=== PATIENT | male | born 1950 | race Caucasian/White ===

== ENCOUNTER 2017-06-08 05:48 | Day surgery (SDC) | payer BC ==
[2017-06-05 09:44] VITALS: BMI 37.2
--- NOTE | 2017-06-07 16:28 | HP ---
HISTORY AND PHYSICAL Aramis Warren is a 66-year-old patient seen with progressive right shoulder pain. After treatment options were discussed with him, he elected to proceed with right shoulder arthroscopy. Consent was obtained, clearance was provided medically by Dr. Kaufman. PAST MEDICAL HISTORY: Noncontributory. PAST SURGICAL HISTORY: Left shoulder surgery. MEDICATIONS: Tramadol, Aleve. ALLERGIES: None reported. SOCIAL HISTORY: Patient denies tobacco use. PHYSICAL EXAMINATION: Evaluation of the right shoulder flexion is 60 degrees, abduction is 30 degrees. External rotation is 30 degrees with some pain and weakness. Impingement sign positive at 50 degrees. Drop-arm sign is positive. Distal neurovascular exam is intact. RADIOGRAPHS: Right shoulder revealed a type 2 anterior acromion, evidence for acromioclavicular joint osteoarthritis. An MRI of the right shoulder was not obtained. IMPRESSION: 1. Right shoulder impingement with rotator cuff tear. 2. Right shoulder acromioclavicular joint osteoarthritis. PLAN: Right shoulder arthroscopy with subacromial decompression probable arthroscopic rotator cuff repair, possible Naheed procedure, biceps tenotomy and debridement. Surgery is 06/08/2017. MMODL / IJN: [id number] /
[~2017-06-08 05:48] MED LIST: ceFAZolin IN SWFI 2 GM/20 ML SYRINGE IVP ONE
[2017-06-08] MEDS ORDERED: LACTATED RINGERS 1,000 ML IV ONE ×2 (06:36→08:06)
[2017-06-08] MEDS ORDERED: LIDOCAINE 1% 20 ML VIAL (10MG/ML) FOR IV START INTRADERMA ONE (06:38)
[2017-06-08] MEDS ORDERED: ONDANSETRON 4 MG/2 ML VIAL IVP ONE (06:39)
[2017-06-08] MEDS ORDERED: DEXAMETHASONE SOD PHOS (MDV) 100 MG/10 ML VIAL IV ONE (06:39)
[2017-06-08 06:44] LABS: Glucose,Whole Blood 125 mg/dL (75-99)
[2017-06-08] MEDS ORDERED: MIDAZOLAM 2 MG/2 ML VIAL IV ONE (06:50)
[2017-06-08] MEDS ORDERED: LIDOCAINE 2%-EPI 1:100,000 20 ML VIAL ONE (07:28)
[2017-06-08] MEDS ORDERED: PHENYLEPHRINE-0.9% NACL SYG 1 MG/10 ML SYRINGE ONE (07:28)
[2017-06-08] MEDS ORDERED: SUCCINYLCHOLINE CHLORIDE 100 MG/5 ML SYR IV ONE (07:28)
[2017-06-08] MEDS ORDERED: fentaNYL (PF) 50 MCG/ML 2 ML AMP ONE (07:28)
[2017-06-08] MEDS ORDERED: MIDAZOLAM 2 MG/2 ML VIAL ONE (07:28)
[2017-06-08] MEDS ORDERED: HYDROmorphone (PF) 1 MG/ML ONE (07:28)
[2017-06-08] MEDS ORDERED: ROPIVACAINE 5 MG/ML 30 ML VIAL ONE (07:28)
[2017-06-08] MEDS ORDERED: PROPOFOL 10 MG/ML 20 ML VIAL IV ONE (07:28)
[2017-06-08] MEDS ORDERED: LIDOCAINE 1% INJ 10MG/ML (20 ML MDV) ONE (07:28)
--- NOTE | 2017-06-08 09:27 | P.ONQ ---
Anesthesiology Proc Note - PNB - Peripheral Nerve Block Performed Right Interscalene Single Procedure Start Time: 07:15 Procedure Stop Time: :25 Indication: Requested by physician Specifically requested for management of pain by DrJose Cruz: Jair Peoples Sedation Type: Sedate with meaningful contact maintained Preparation: Sterile Prep Position: Supine Needle Types: Facet Needle Size: 100mm (4") Needle Gauge: 21 Technique: Ultrasound Injectate: 0.5% Ropivacaine (see comment for volume) Blood Aspirated: No Pain Paresthesia on Injection Noted: No Resistance on Injection: Normal Events: Uneventful and Well Tolerated
--- NOTE | 2017-06-08 10:20 | P.OP ---
Date of Procedure: 06/08/17 Preoperative Diagnosis: Right shoulder impingement Postoperative Diagnosis: 1. Right shoulder rotator cuff tear 2. Right shoulder impingement 3. Right shoulder acromioclavicular joint osteoarthritis 4. Right shoulder superficial labral tear 5. Right shoulder glenoid chondromalacia Procedure(s) Performed: 1. Right shoulder arthroscopic rotator cuff repair 2. Right shoulder arthroscopic decompression 3. Right shoulder arthroscopic Naheed procedure 4. Right shoulder arthroscopic debridement labral tear 5. Right shoulder chondroplasty glenoid Implants: 6-4.5 peek anchors Anesthesia: GETA, regional (interscalene block) Surgeon: Jair Peoples Head Stock Transfer Clerk #1: Richard Lopez Estimated Blood Loss (ml): 20 Pathology: none sent Condition: stable Disposition: PACU Indications for Procedure: 66yr old patient seen with progressive right shoulder pain. After treatment options were discussed, he elected to proceed with arthroscopy Operative Findings: see description of procedure Description of Procedure: Patient underwent a shoulder block by department of anesthesia. The patient was then taken to the operative suite. The patient underwent a general anesthetic by the department of anesthesia. The patient was placed into a lateral position and secured. There was appropriate padding of the bony prominence. right shoulder was then prepped and draped in normal sterile orthopedic fashion. We placed the extremity in 10 pounds of longitudinal traction. A posterior incision was now made for a posterior working portal site. The trocar and cannula were inserted into the glenohumeral joint. Arthroscopy was initiated. Spinal needle was now inserted anteriorly, to ascertain the anterior working portal site. An incision was now made in that area, a trocar was inserted followed by a probe.there superficial tearing of the anterior superior labrum present. Biceps tendon was absent. Grade 1 chondral malacia changes of the humeral head and grade 1-2 chondral malacia changes of glenoid fossa. Some osteochondral tears were present near the glenoid fossa. There was a massive rotator cuff tear clearly visualized from glenohumeral side. I debrided the superficial labral tears down to stable tissue. I performed a chondroplasty the glenoid down to stable tissue. Instruments now removed from glenohumeral joint. Utilizing the posterior working portal site, the trocar and cannula were inserted into the subacromial space. Arthroscopy initiated. I made an incision 2 fingerbreadths lateral to the acromion. I introduced my trocar followed by my ArthroCare ablator. I now began ablating thick subacromial bursal tissue, which exposed the undersurface of the anterior acromion. This was diminished subacromial space. There was a very prominent anterior acromion. A motorized bur was introduced and a subacromial decompression was performed. I also excised some osteophytes off the inferior aspect of the distal clavicle. The AC joint was visualized and noted to be fairly arthritic. Our motorized bur was introduced in the anterior portal site and a Naheed procedure was performed without difficulty, decompressing the AC joint nicely. I turned my attention to the rotator cuff. There was a massive retracted rotator cuff tear present. It measured approximately 5 cm. I proceeded with a significant release and now was able to bring the tendon over the footprint. I abraded the footprint with a motorized bur. I repaired the posterior intrasubstance portion of the tear with 2 [id number] sutures. I made 2 director writing portal sites off the lateral acromion. I introduced 3 medial row anchors each with 2 sutures. I now passed all 8 limbs of suture through good bites of rotator cuff tendon. We now crisscrossed our sutures and introduced 3 lateral anchors which compressed the tendon along her abraded footprint very nicely. Residual suture limbs were clipped. We had a good stable repair this massive retracted tear. I injected 1 mL UCT intra-articular.Instruments now removed from the portal sites. All portal sites were approximated with nylon suture. Sterile dressings were applied followed by a shoulder immobilizer. [facility] assisted with the procedure. The patient was awakened, transferred to a bed, and taken to recovery in stable condition.
[2017-06-08 10:30] VITALS: TEMP 97.2
[2017-06-08] MEDS: HYDROmorphone 4 MG/ML 1 ML SYRINGE IVP ONE ×2 (10:38→10:44)
[2017-06-08 10:45] LABS: Glucose,Whole Blood 132 mg/dL (75-99)
[2017-06-08] MEDS ORDERED: METOPROLOL TARTRATE 5 MG/5 ML VIAL IVP ONE (10:51)
[2017-06-08 13:14] VITALS: BP 124/82; PULSE 76
[2017-06-08 14:28] VITALS: RESP 14
== END 2017-06-08 15:20 | disposition home or self-care (01) ==
LOC: OR 05:48
PROVIDERS: ATTEND Orthopaedic Surgery
DX: M75.101 Unspecified rotator cuff tear or rupture of right shoulder, not specified as traumatic (principal); M75.41 Impingement syndrome of right shoulder; M19.011 Primary osteoarthritis, right shoulder; S43.491A Other sprain of right shoulder joint, initial encounter; X58.XXXA Exposure to other specified factors, initial encounter; M94.211 Chondromalacia, right shoulder; E11.9 Type 2 diabetes mellitus without complications; I10 Essential (primary) hypertension; Z79.1 Long term (current) use of non-steroidal anti-inflammatories (NSAID); Z79.84 Long term (current) use of oral hypoglycemic drugs; Z79.899 Other long term (current) drug therapy; Z79.891 Long term (current) use of opiate analgesic; Z91.09 Other allergy status, other than to drugs and biological substances
CPT/HCPCS: 64415; 29827; 29826; 29824; C1713; C1765; J2250; J2405; J2001; J3010; J1170 ×2; J1100; J2795; J2370; J0330; J2704; J0690

== ENCOUNTER 2018-04-12 15:11 | Day surgery (SDC) | payer BC ==
[2018-04-11 08:30] VITALS: BMI 36.9
--- NOTE | 2018-04-11 20:14 | HP ---
HISTORY AND PHYSICAL REASON FOR ADMISSION: Surgery is 04/12/2018. Aramis Warren is a 67-year-old patient seen with a symptomatic right thumb trigger thumb. We discussed options. He elected to proceed with surgical release. Consent was obtained. PAST MEDICAL HISTORY: Noncontributory. PAST SURGICAL HISTORY: Left shoulder arthroscopy. MEDICATIONS ARE: None. ALLERGIES: None reported. SOCIAL HISTORY: He denies tobacco use. PHYSICAL EXAMINATION: Physical evaluation of his right hand: He is tender along the A1 iban of the right thumb. There is clicking and catching with range of motion there. There is good perfusion sensation distally. There is good radial pulse present. Radiographs of the right hand failed to reveal any acute osseous abnormality. There was some osteoarthritic changes. IMPRESSION: 1. Right thumb trigger finger. 2. Right ring finger trigger finger. PLAN: Release A1 iban of the right thumb and right ring finger. Surgery scheduled for 04/12/2018. MMODL / IJN: [id number] /
[~2018-04-12 15:11] MED LIST changes: +DEXAMETHASONE SOD PHOSPHATE 10 MG/ML 1 ML VIAL IV ONE; +HYDROmorphone 1 MG/ML 1 ML SYRINGE IVP PRN; +LACTATED RINGERS 1,000 ML IV SCH; +LIDOCAINE 1% 20 ML VIAL (10MG/ML) FOR IV START INTRADERMA PRN; +MIDAZOLAM 2 MG/2 ML VIAL IV PRN; +ONDANSETRON 4 MG/2 ML VIAL IVP ONE; +SCOPOLAMINE 1.5MG/72HR PATCH TRANSDERM ONE
[2018-04-12 15:35] VITALS: RESP 16; TEMP 97.3
[2018-04-12] MEDS ORDERED: LIDOCAINE 1% 20 ML VIAL (10MG/ML) FOR IV START INTRADERMA ONE (15:43)
[2018-04-12] MEDS ORDERED: MIDAZOLAM 2 MG/2 ML VIAL ONE (15:46)
[2018-04-12] MEDS ORDERED: PROPOFOL 10 MG/ML 20 ML VIAL IV ONE (15:46)
[2018-04-12] MEDS ORDERED: BUPIVACAINE (PF) 0.25% 30 ML VIAL SQ ONE ×3 (15:46→16:13)
[2018-04-12] MEDS ORDERED: fentaNYL (PF) 50 MCG/ML 2 ML AMP ONE (15:46)
[2018-04-12 15:53] LABS: Glucose,Whole Blood 140 mg/dL (75-99)
--- NOTE | 2018-04-12 16:36 | P.OP ---
Date of Procedure: 04/12/18 Preoperative Diagnosis: 1. Right trigger thumb 2. Right ring finger trigger finger Postoperative Diagnosis: Same Procedure(s) Performed: 1. Release A1 iban right thumb 2. Release A1 iban right ring finger Anesthesia: MAC, local Surgeon: Jair Peoples Estimated Blood Loss (ml): 3 Pathology: none sent Condition: stable Disposition: PACU Indications for Procedure: 67-year-old patient seen with symptomatic right thumb and right ring finger trigger digits. I discussed options for treatment and he elected to proceed with surgical release. Operative Findings: see description of procedure Description of Procedure: The patient was taken to the operative suite. The patient underwent IV sedation by the primary a seizure. A well-padded tourniquet was placed proximal right upper extremity. The right upper extremity was now prepped and draped in the normal sterile orthopedic fashion. The proposed incision sites were infiltrated with 5 mL quarter percent plain Marcaine. When good local analgesia was noted the extremity was elevated and the tourniquet was insufflated to 250. I made an incision at the area a 1 iban right thumb. Dissection was carefully taken down to the A1 iban. It was identified and released. There was obviously some thickening of the tendon that area. I took the thumb through range of motion and noted good excursion. I now turned my attention to the A1 iban area of the right ring finger. I made an incision in there. I dissected down to the A1 iban. I the release A1 iban. I then took the fingers range of motion and noted good excursion of the tendon. Both areas were irrigated with saline. Both incisions were approximated with 4-0 nylon. We applied sterile dressings. The tourniquet was released with immediate capillary fill all digits noted. Sterile web bone Charli bandage were applied. Patient was awakened, taken recovery stable condition.
[2018-04-12 17:00] VITALS: BP 114/71; PULSE 67
== END 2018-04-12 17:14 | disposition home or self-care (01) ==
LOC: OR 15:11
PROVIDERS: ATTEND Orthopaedic Surgery
DX: M65.311 Trigger thumb, right thumb (principal); M65.341 Trigger finger, right ring finger; I10 Essential (primary) hypertension; E11.9 Type 2 diabetes mellitus without complications; G47.33 Obstructive sleep apnea (adult) (pediatric); Z79.84 Long term (current) use of oral hypoglycemic drugs; Z79.899 Other long term (current) drug therapy; Z79.1 Long term (current) use of non-steroidal anti-inflammatories (NSAID)
CPT/HCPCS: 26055 ×2; J2250; J1100; J2405; J3010; J2704; J0690

== ENCOUNTER → 2020-06-01 | Outpatient (CLI) | payer MEDICARE, OTHER ==
--- NOTE | 2020-06-01 13:08 | CT ---
EXAMINATION TYPE: CT sinus wo con DATE OF EXAM: 06/01/2020 COMPARISON: NONE HISTORY: Chronic sinusitis per order. CT DLP: 575.30 mGycm. Automated Exposure Control for Dose Reduction was Utilized. TECHNIQUE: CT scan of the sinuses is performed without contrast, axial images are obtained, coronal r eformatted images are also reviewed. FINDINGS: There is occasional tiny mucous retention cyst or polyps scattered in the maxillary sinuses bilaterally. Remainder paranasal sinuses are clear. No suspicious air-fluid levels or opacification. Ostiomeatal complexes are patent bilaterally on coronal image 19. Visualized portion of mastoid air cells show no abnormal opacification. The globes are intact bilate rally. Visualized portion of brain parenchyma is unremarkable. IMPRESSION: Chronic maxillary sinus disease. No acute sinusitis.
== END | disposition home or self-care (01) ==
LOC: RADCTMAIN 12:09
PROVIDERS: ATTEND Otolaryngology
DX: J32.0 Chronic maxillary sinusitis (principal)
CPT/HCPCS: 70486

== ENCOUNTER 2020-07-09 08:21 | Day surgery (SDC) | payer MEDICARE ==
[2020-07-03 14:04] VITALS: BMI 34.7
[~2020-07-09 08:21] MED LIST changes: -DEXAMETHASONE SOD PHOSPHATE 10 MG/ML 1 ML VIAL IV ONE; +DEXAMETHASONE SOD PHOSPHATE 4 MG/ML 1 ML VIAL IV ONE; +DEXAMETHASONE SOD PHOSPHATE 4 MG/ML 1 ML VIAL IV PRN; +FAMOTIDINE 20 MG/2 ML VIAL IV PRN; -HYDROmorphone 1 MG/ML 1 ML SYRINGE IVP PRN; +LIDOCAINE 1% (10MG/ML) FOR IV START INTRADERMA PRN; -LIDOCAINE 1% 20 ML VIAL (10MG/ML) FOR IV START INTRADERMA PRN; +MELOXICAM 7.5 MG TAB PO PRN; -MIDAZOLAM 2 MG/2 ML VIAL IV PRN; +ONDANSETRON 4 MG/2 ML VIAL IVP PRN; +OXYMETAZOLINE 0.05% NASL SPRAY 1 SPRAY BOTTLE EA NOSTRIL PRN; -SCOPOLAMINE 1.5MG/72HR PATCH TRANSDERM ONE; -ceFAZolin IN SWFI 2 GM/20 ML SYRINGE IVP ONE
[2020-07-09 09:38] LABS: Glucose,Whole Blood 103 mg/dL (75-99)
[2020-07-09] MEDS ORDERED: MIDAZOLAM 2 MG/2 ML VIAL IVP ONE (09:53)
[2020-07-09] MEDS ORDERED: DEXAMETHASONE SOD PHOSPHATE 10 MG/ML 1 ML VIAL ONE (10:35)
[2020-07-09] MEDS ORDERED: PROPOFOL 10 MG/ML 20 ML VIAL IV ONE (10:35)
[2020-07-09] MEDS ORDERED: MIDAZOLAM 2 MG/2 ML VIAL ONE (10:35)
[2020-07-09] MEDS ORDERED: ROCURONIUM 10 MG/ML (5 ML VIAL) IV ONE (10:35)
[2020-07-09] MEDS ORDERED: GLYCOPYRROLATE 0.2 MG/ML 2 ML VIAL ONE (10:35)
[2020-07-09] MEDS ORDERED: LIDOCAINE 1% INJ 10MG/ML (20 ML MDV) ONE (10:35)
[2020-07-09] MEDS ORDERED: fentaNYL (PF) 50 MCG/ML 2 ML AMP ONE (10:35)
[2020-07-09] MEDS ORDERED: HYDROmorphone (PF) 1 MG/ML ONE (10:35)
[2020-07-09] MEDS ORDERED: NEOSTIGMINE 1 MG/ML 10 ML VIAL ONE (10:35)
[2020-07-09] MEDS ORDERED: SUCCINYLCHOLINE CHLORIDE VIAL 200 MG/10 ML VIAL IV ONE (10:35)
[2020-07-09] MEDS ORDERED: BACITRACIN ZINC 500 UNIT/GM OINT 28.4 GM TUBE TOPICAL ONE (11:09)
[2020-07-09] MEDS ORDERED: EPINEPHrine 1 MG/ML (MDV) 30 ML VIAL TOPICAL ONE ×3 (11:10)
[2020-07-09] MEDS ORDERED: BUPIVACAIN-EPI 0.5%-1:200,000 30 ML VIAL SQ ONE ×2 (11:10)
[2020-07-09] MEDS ORDERED: LIDOCAINE 1%-EPI 1:100,000 20 ML VIAL SUBMUCOSAL ONE ×2 (11:10)
[2020-07-09] MEDS ORDERED: FLUORESCEIN STRIPS 1 MG STRIP MISCELLANE ONE (11:11)
[2020-07-09 12:35] VITALS: TEMP 97.1
[2020-07-09] MEDS ORDERED: HYDROmorphone 0.5 MG/0.5 ML SYRINGE IVP ONE (12:35)
--- NOTE | 2020-07-09 12:57 | P.OP ---
Date of Procedure: 07/09/20 Preoperative Diagnosis: Deviated nasal septum Hypertrophy of inferior nasal turbinates Chronic maxillary and ethmoid sinusitis Postoperative Diagnosis: Same Procedure(s) Performed: Bilateral functional endoscopic sinus surgery with removal of diseased tissue Septoplasty Bilateral submucosal resection of the inferior nasal turbinates with outfracturing compression Anesthesia: DANILO Surgeon: Arslan Napier Estimated Blood Loss (ml): 20 Pathology: other (Sinonasal) Condition: stable Disposition: PACU Indications for Procedure: This patient presented to the office with long-standing persistent nasal obstruction and discolored postnasal drainage with anosmia facial pain and pressure etc. CAT scan evaluation shows chronic sinusitis of the maxillary and ethmoid sinuses along with a deviated nasal septum and large obstructive inferior turbinates. He was trialed on medical therapy and failed medical therapy and after long discussion we decided to proceed forward with bilateral functional endoscopic sinus surgery septoplasty and turbinate surgery. All risks, benefits, and alternative therapies were discussed. Consent was obtained and all questions were answered. Operative Findings: Deviated nasal septum with widespread obstructive inferior turbinates and diseased tissue and polyps of the maxillary sinuses Description of Procedure: This patient was taken to the operative room and placed in the supine position. A general inhalation anesthetic was administered to the patient by the department of anesthesia with a functioning IV line in place. The patient was monitored throughout the entire case by the department of anesthesia. The eyes were taped shut for protection. The patient was placed in a slight reverse Trendelenburg position. The patient had previously utilize Afrin nasal spray preoperatively. The nose was evaluated and the septum lateral nasal wall and inferior turbinates were injected with lidocaine 1% with epinephrine 1 100,000 bilaterally. Approximately 10 minutes were allowed wait for full vasoconstrictive effects to take place. At this point a caudal incision was made over the caudal portion of the left septum down to the mucoperichondrium. A mucoperichondrial flap was elevated on the left side and dissection was carried with use of tunnels posteriorly. We then made a crossover incision through the cartilage to the contralateral side and for the mucoperichondrial flap development was performed to the extent of visualization on the contralateral side. After the cartilage was freed with use of several crosshatching incisions and removal of some redundant strips of septal cartilage, the septum was straightened and placed back in the midline. The septum was sutured fixated to the ovarian groove. Excellent straightening occurred and the septum was visibly straight. Incision was closed with a 40 rapid Vicryl. We utilized a running nonlocking fashion for closure of the incision. A quilting stitch was used to reapproximate the septal flaps with use of a 40 rapid Vicryl. We then entered the nose with a 0 and 30 Vides blanquita endoscope. Previous to this we did inject the lateral nasal wall and middle turbinate and uncinate process with lidocaine 1% with epinephrine 1 100,000. Approximately 10 minutes were allowed wait for full vasoconstrictive effects to take place. With use of a microdebrider and a pediatric backbiter, we took down the uncinate process bilaterally. We then opened the maxillary sinuses bilaterally. We utilized a microdebrider for this and entered the maxillary sinuses and removed diseased tissue. This was done bilaterally. Bilateral cysts and polyps were removed. All diseased tissue was removed. After the maxillary sinuses were opened and the diseased tissue was removed we entered the ethmoid bulla and with use of a microdebrider and up-biting Emili, we followed the fovea frontalis through the basal lamella and into the posterior ethmoid air cells and did a total ethmoidectomy. We removed the anterior ethmoid air cells with use of a microdebrider and up-biting boss. After all the anterior ethmoid air cells were removed we did the same in the posterior ethmoid. A total ethmoidectomy was completed in that fashion with removal of all the anterior and posterior ethmoid air cells and diseased tissue. Xerogel was inserted and minimal bleeding was encountered. We reinspected the skull base there is no signs of any orbital penetration or signs of any intracranial penetration. The sugical site was reinspected after the xerogel was placed and no bleeding was seen. Intranasal splints were inserted and fixated at the end of the case. We utilized Sparrow nasal splints. There will be removed and the patient returns to the office. Attention was then paid to the inferior turbinates. The bilateral inferior turbinates were hypertrophic and obstructive. We entered the anterior portion of the inferior turbinates with use of a microdebrider. We remove bone and submucosal elements with use of a microdebrider bilaterally. The inferior turbinates underwent a submucosal resection with removal of submucosal tissue and bone. We obtained a much better and normal in size for breathing. The inferior turbinates were then outfractured and compressed with a Habbits nasal elevator. Excellent airway was obtained and was symmetric bilaterally. No bleeding was encountered.
[2020-07-09 13:10] VITALS: RESP 20
[2020-07-09] MEDS ORDERED: oxyCODONE-APAP 5-325MG 1 EACH TAB ONE (13:14)
[2020-07-09] MEDS ORDERED: oxyCODONE-APAP 5-325MG 1 EACH TAB PO ONE (13:15)
[2020-07-09 13:59] VITALS: BP 142/72; PULSE 92
== END 2020-07-09 14:00 | disposition home or self-care (01) ==
LOC: OR 08:21
PROVIDERS: ATTEND Otolaryngology
DX: J32.8 Other chronic sinusitis (principal); J34.2 Deviated nasal septum; J34.3 Hypertrophy of nasal turbinates; E11.9 Type 2 diabetes mellitus without complications; G47.33 Obstructive sleep apnea (adult) (pediatric); I25.2 Old myocardial infarction; Z98.49 Cataract extraction status, unspecified eye; Z82.49 Family history of ischemic heart disease and other diseases of the circulatory system; Z83.42 Family history of familial hypercholesterolemia; Z83.3 Family history of diabetes mellitus; Z83.52 Family history of ear disorders; Z84.89 Family history of other specified conditions; Z79.84 Long term (current) use of oral hypoglycemic drugs; Z79.82 Long term (current) use of aspirin; Z79.899 Other long term (current) drug therapy; Z98.890 Other specified postprocedural states
CPT/HCPCS: 88305; 88300; 30520; 30140; 31267; 31255; J0171; J2250; J0330; J1100 ×2; J2710; J2405; J0690; J2001; J3010; J1170 ×2; J2704

== ENCOUNTER → 2022-05-02 | Outpatient (CLI) | payer MEDICARE ==
--- NOTE | 2022-05-02 14:24 | XR ---
EXAMINATION TYPE: XR wrist complete RT DATE OF EXAM: 05/02/2022 COMPARISON: NONE HISTORY: 71-year-old male M1 9.031, chronic right wrist pain, OA. TECHNIQUE: 4 views FINDINGS: There is severe degenerative change at the radiocarpal joint, particularly the radial lunate joint wi th [id number] articulation and subchondral sclerosis. Underlying subchondral cystic change noted wi thin the distal radius and scaphoid bone. Additional prominent degenerative change at the distal radi al ulnar joint. There is mild to moderate degenerative change at the first CMC and triscaphe joints. Slight widening of the scapholunate interval at 3 mm. No acute fracture, subluxation, dislocation see n. IMPRESSION: 1. Slight widening of the scapholunate interval at 3 mm suggesting an age indeterminate sprain. Great er than 4 mm of widening would suggest rupture, and is not currently present. 2. Severe degenerative change radiolunate joint at the wrist. Moderate to severe at the distal radiou lnar joint. Mild osteoarthritic change at the basal joint of the thumb.
== END | disposition home or self-care (01) ==
LOC: RADXRMAIN 13:14
PROVIDERS: ATTEND Family Medicine
DX: M19.031 Primary osteoarthritis, right wrist (principal)

== ENCOUNTER → 2023-02-17 | Outpatient (CLI) | payer MEDICARE ==
[2023-02-17 08:02] LABS: African American GFR (CKD) >90 (>60 ml/min/1.73 sqM); Blood Urea Nitrogen 24 mg/dL (9-20); Non-African American GFR(CKD) >90 (>60 ml/min/1.73 sqM)
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
== END | disposition home or self-care (01) ==
LOC: RADCTMAIN 07:03
PROVIDERS: ATTEND Family Medicine
DX: S06.0X0A Concussion without loss of consciousness, initial encounter (principal); R51.9 Headache, unspecified; V86.95XA Unspecified occupant of 3- or 4- wheeled all-terrain vehicle (ATV) injured in nontraffic accident, initial encounter
CPT/HCPCS: 82565; 84520; 70491; 70450; 36415; Q9967

== ENCOUNTER 2023-05-25 06:35 | Emergency (ER) | payer MEDICARE ==
[2023-05-25] MEDS ORDERED: HYDROmorphone 1 MG/ML 1 ML SYRINGE IM STA (06:52)
--- NOTE | 2023-05-25 06:54 | ED ---
Fall HPI - General Chief Complaint: Fall Stated Complaint: fall Time Seen by Provider: 05/25/23 06:52 Source: patient, RN notes reviewed Mode of arrival: ambulatory Limitations: no limitations - History of Present Illness Initial Comments: 72-year-old male presents emergency department chief complaint slip and fall on the ice. Patient states he fell around 6 PM last night. Patient states that he fell striking his head and believes he lost consciousness. Patient states he had a recent head injury, [place] in which he just finished up physical therapy for concussion. Patient states he has severe right wrist pain, swelling. He has very limited range of motion. - Related Data Home Medications Medication Instructions Recorded Confirmed Glucosam/Chond/Hyalu/Cf Borate 1 each PO DAILY 06/05/17 07/09/20 [Move Free Joint Health Tablet] Multivitamin [Men's Multi-Vitamin] 1 each PO DAILY 06/05/17 07/09/20 Aspirin [Adult Low Dose Aspirin EC] 81 mg PO HS 07/03/20 07/09/20 Canagliflozin [Invokana] 100 mg PO AC-BRKFST 07/03/20 07/09/20 Metoprolol Succinate (ER) [Toprol 25 mg PO DAILY 07/03/20 07/09/20 Xl] metFORMIN HCL [Glucophage] 1,000 mg PO W/SUPPER 07/03/20 07/09/20 Previous Rx's Medication Instructions Recorded Amoxicillin/Potassium Clav 1 each PO Q12HR #20 tab 07/09/20 [Augmentin 875-125 Tablet] Meloxicam [Mobic] 15 mg PO DAILY #10 tab 07/09/20 oxyCODONE-APAP 5-325MG [Percocet 1 - 2 each PO Q6HR PRN #24 tab 07/09/20 5-325 mg] predniSONE [Deltasone] 20 mg PO DIRECTED #5 tab 07/09/20 HYDROcodone/APAP 10-325MG [Stilwell 1 tab PO Q6HR PRN 3 Days #12 tab 05/25/23 10-325] Allergies Allergy/AdvReac Type Severity Reaction Status Date / Time No Known Allergies Allergy Verified 05/25/23 06:48 Review of Systems ROS Statement: Those systems with pertinent positive or pertinent negative responses have been documented in the HPI. ROS Other: All systems not noted in ROS Statement are negative. Past Medical History Past Medical History: Diabetes Mellitus, Hypertension, Osteoarthritis (OA), Sleep Apnea/CPAP/BIPAP Additional Past Medical History / Comment(s): occ migraine, stopped BP rx about 1 month ago because BP was running low-BP has been good when checked at PCP office, frequent nighttime urination History of Any Multi-Drug Resistant Organisms: None Reported Past Surgical History: Hernia Repair, Orthopedic Surgery Additional Past Surgical History / Comment(s): brent shoulder rotator cuff and bicep repair, brent cataracts, Past Anesthesia/Blood Transfusion Reactions: Previous Problems w/ Anesthesia, Motion Sickness Additional Past Anesthesia/Blood Transfusion Reaction / Comment(s): takes a while to come out Past Psychological History: No Psychological Hx Reported Smoking Status: Never smoker Past Alcohol Use History: Occasional Past Drug Use History: None Reported - Past Family History Mother Family Medical History: No Reported History General Exam Limitations: no limitations General appearance: alert, in no apparent distress Head exam: Present: atraumatic, normocephalic, normal inspection Eye exam: Present: normal appearance, PERRL, EOMI. Absent: scleral icterus, conjunctival injection, periorbital swelling ENT exam: Present: normal exam, mucous membranes dry, mucous membranes moist Neck exam: Present: normal inspection, full ROM. Absent: tenderness, meningismus, lymphadenopathy Respiratory exam: Present: normal lung sounds bilaterally. Absent: respiratory distress, wheezes, rales, rhonchi, stridor Cardiovascular Exam: Present: regular rate, normal rhythm, normal heart sounds. Absent: systolic murmur, diastolic murmur, rubs, gallop, clicks Extremities exam: Present: other (Right wrist obvious deformity, swelling, tenderness to palpation, neurovascular intact, no discoloration equal: Equal warmth) Back exam: Present: full ROM. Absent: tenderness, muscle spasm, paraspinal tenderness, vertebral tenderness Neurological exam: Present: alert, oriented X3, CN II-XII intact, reflexes normal. Absent: motor sensory deficit Skin exam: Present: warm, dry, intact, normal color. Absent: rash Course Vital Signs 05/25/23 05/25/23 06:48 09:14 Temperature 98.2 F Pulse Rate 64 72 Respiratory 18 20 Rate Blood Pressure 103/66 120/64 O2 Sat by Pulse 95 98 Oximetry Procedures - Orthopedic Splinting/Casting Injury #1 Side: right Upper Extremity Injury Location: short arm, wrist Upper Extremity Immobilizer: volar splint, synthetic pre-padded splint Medical Decision Making - Medical Decision Making Was pt. sent in by a medical professional or institution (, ARTI, TOURIST INFORMATION ASSISTANT, urgent care, hospital, or penitentiary...) When possible be specific @ -No Did you speak to anyone other than the patient for history (EMS, parent, family, police, friend...)? What history was obtained from this source @ -No Did you review nursing and triage notes (agree or disagree)? Why? @ -I reviewed and agree with nursing and triage notes Were old charts reviewed (outside hosp., previous admission, EMS record, old EKG, old radiological studies, urgent care reports/EKG's, penitentiary records)? Report findings @ -No old charts were reviewed Differential Diagnosis (chest pain, altered mental status, abdominal pain women, abdominal pain men, vaginal bleeding, weakness, fever, dyspnea, syncope, headach e, dizziness, GI bleed, back pain, seizure, CVA, palpatations, mental health, musculoskeletal)? @ -Fall, intracranial hemorrhage, wrist fracture, wrist sprain, closed head injury EKG interpreted by me (3pts min.). @ -None X-rays interpreted by me (1pt min.). @ -[X-ray right wrist shows distal radius fracture, there are cysts noted within the bone X-ray right forearm shows distal radius fracture no other fractures noted CT interpreted by me (1pt min.). @ -CT brain, C-spine no acute intracranial hemorrhage, mass effect, cervical fracture U/S interpreted by me (1pt. min.). @ -None done What testing was considered but not performed or refused? (CT, X-rays, U/S, labs)? Why? @ -None What meds were considered but not given or refused? Why? @ -None Did you discuss the management of the patient with other professionals (professionals i.e. , ARTI, TOURIST INFORMATION ASSISTANT, lab, RT, psych nurse, marriage and family social worker, trap operator, teacher, commissioned fire officer, correctional case manager)? Give summary @ -No Was smoking cessation discussed for >3mins.? @ -No Was critical care preformed (if so, how long)? @ -No Were there social determinants of health that impacted care today? How? (Homelessness, low income, unemployed, alcoholism, drug addiction, transportation, low edu. Level, literacy, decrease access to med. care, residential, rehab)? @ -No Was there de-escalation of care discussed even if they declined (Discuss DNR or withdrawal of care, Hospice)? DNR status @ -No What co-morbidities impacted this encounter? (DM, HTN, Smoking, COPD, CAD, Cancer, CVA, ARF, Chemo, Hep., AIDS, mental health diagnosis, sleep apnea, morbid obesity)? @ -None Was patient admitted / discharged? Hospital course, mention meds given and route, prescriptions, significant lab abnormalities, going to OR and other pertinent info. @ -[h patient CT was negative patient did have a distal radius fracture he was splinted, given analgesics discharged with analgesics he will follow-up with orthopedics on-call return pressure discussed. Undiagnosed new problem with uncertain prognosis? @ -No Drug Therapy requiring intensive monitoring for toxicity (Heparin, Nitro, Insulin, Cardizem)? @ -No Were any procedures done? @ -No Diagnosis/symptom? @ -[Fall, closed head injury, distal right radius fracture Acute, or Chronic, or Acute on Chronic? @ -Acute Uncomplicated (without systemic symptoms) or Complicated (systemic symptoms)? @ -Uncomplicated Side effects of treatment? @ -No Exacerbation, Progression, or Severe Exacerbation? @ -No Poses a threat to life or bodily function? How? (Chest pain, [place], [place], pneumonia, PE, COPD, DKA, ARF, appy, cholecystitis, CVA, Diverticulitis, Homicidal, Suicidal, threat to staff... and all critical care pts) @ -No Disposition Clinical Impression: Fall, Closed head injury, Wrist fracture, right Disposition: HOME SELF-CARE Condition: Stable Instructions (If sedation given, give patient instructions): Arm Fracture in Adults (ED) Additional Instructions: Please return to the Emergency Department if symptoms worsen or any other concerns. Prescriptions: HYDROcodone/APAP 10-325MG [Stilwell 10-325] 1 tab PO Q6HR PRN 3 Days #12 tab PRN Reason: Pain Is patient prescribed a controlled substance at d/c from ED?: No Referrals: Mark Kaufman DO [Primary Care Provider] - 1-2 days Kvng Mcdermott MD [Medical Doctor] - 1-2 days Time of Disposition: 09:08
[2023-05-25 07:05] VITALS: TEMP 98.2
--- NOTE | 2023-05-25 07:37 | XR ---
EXAMINATION TYPE: XR wrist complete RT DATE OF EXAM: 05/25/2023 COMPARISON: 05/02/2022 HISTORY: 72-year-old male fall and pain TECHNIQUE: 3 views FINDINGS: Moderate degenerative change at the basal joint of the thumb and triscaphe joint. Prominent subcortical cysts throughout the carpal bones, radiocarpal joint. Joint space narrowing and marginal spurring especially at the radiolunate and distal radioulnar joints. There is soft tissue swelling n oted about the wrist. Faint synovial calcifications along the radial aspect of the carpus. Possible s ubtle erosion ulnar styloid process on the lateral view. Possible subtle erosion along the radial savana ed distal scaphoid pole. Subtle lucency along the aortic subchondral bone at the mid to lateral radia l epiphysis. IMPRESSION: 1. Diffuse soft tissue swelling with underlying arthropathy radiocarpal joint, distal radioulnar join t, and midcarpal compartment with prominent subcortical cysts. This seems to be some faint synovial c alcification, diffuse soft tissue swelling, and prominent subcortical cysts. Possible erosion at the ulnar styloid head and distal scaphoid pole. Some differential considerations include inflammatory ar thropathy such as RA or CPPD. 2. Unable to exclude a subtle nondisplaced intra-articular fracture of the distal radial epiphysis.
--- NOTE | 2023-05-25 07:46 | CT ---
EXAMINATION TYPE: CT brain roque duran con DATE OF EXAM: 05/25/2023 COMPARISON: None HISTORY: 72-year-old male fall, head and neck pain CT DLP: 1718.9 mGycm Automated exposure control for dose reduction was used. Technique: Examination of the head was done in axial plane without intravenous contrast. Coronal and sagittal reconstructions performed. CT of the cervical spine was obtained in axial plane without intravenous injection of contrast mater ial. Coronal and sagittal reformatted images were obtained from the axial views for evaluation of f ractures, spinal alignment and canal. FINDINGS: Head: There is no evidence of acute intracranial hemorrhage, acute ischemic changes, mass, mass-effect, or extra-axial fluid collection. There is no effacement of cerebral sulci or basal subarachnoid cister ns. There is no hydrocephalus. There is no midline shift. Tipton-white matter distinction is preserv ed. Moderate mucosal thickening throughout the ethmoid air cells. Lobulated mucosal thickening floor of t he left maxillary sinus. Orbits and globes appear intact. Mastoid air cells well pneumatized. Cervical spine: No craniocervical junction abnormality, free dental space widening, or prevertebral soft tissue swell ing. Degenerative change of the C1 dens articulation. Reverse of the normal cervical lordosis. Degenerative grade 1 retrolisthesis C5-C6 with moderate mult ilevel spondylotic changes especially mid to lower cervical spine. Additional trace grade 1 retrolist hesis C6/C7. Suspect variable mild underlying spinal canal stenoses lower cervical spine sections at C5-C6 though assessment is limited due to artifact from large body habitus and elevated shoulders. No acute fracture is seen. Moderate right neuroforaminal stenosis C3-C4 and on both sides in C5-C6 and C6-C7. Moderate to severe on the right at T7-T1. Moderate on the right at T1-T2. Sagittal and coronal reformatted images confirm above findings. COMBINED IMPRESSION: 1. No acute intracranial abnormality seen. 2. Moderate multilevel spondylotic change. Degenerative grade 1 retrolisthesis C5-C6 and C6/C7. No ac rigoberto fracture seen of the cervical spine. Limitations due to artifact from patient large body habitus. 3. Moderate chronic ethmoid sinus disease.
[2023-05-25] MEDS ORDERED: HYDROmorphone 1 MG/ML 1 ML SYRINGE IVP STA (07:47)
--- NOTE | 2023-05-25 08:37 | XR ---
EXAMINATION TYPE: XR forearm RT DATE OF EXAM: 05/25/2023 COMPARISON: Correlation wrist same day HISTORY: 72-year-old male with pain after fall on ice TECHNIQUE: 2 views FINDINGS: Wrist reported separately including the subtle lucency in the subchondral bone of the distal radial e piphysis. No significant elbow joint effusion is seen. Dorsal soft tissue swelling is present along t he proximal forearm. Prominent soft tissue swelling at the wrist. Overlying volar sided fiberglass sp lint has been placed in the interval. No additional acute fracture or dislocation seen of the more pr oximal to mid radius or ulna. IMPRESSION: Wrist reported separately. Interval placement of a fiberglass splint. No acute fracture identified of the more proximal or mid radius/ulna.
[2023-05-25 09:37] VITALS: BP 120/64; PULSE 72; RESP 20
== END 2023-05-25 09:15 | disposition home or self-care (01) ==
LOC: EC 06:35
DX: S52.501A Unspecified fracture of the lower end of right radius, initial encounter for closed fracture (principal); J32.2 Chronic ethmoidal sinusitis; E11.9 Type 2 diabetes mellitus without complications; I10 Essential (primary) hypertension; M19.90 Unspecified osteoarthritis, unspecified site; G47.30 Sleep apnea, unspecified; Z79.84 Long term (current) use of oral hypoglycemic drugs; Z79.82 Long term (current) use of aspirin; Z79.1 Long term (current) use of non-steroidal anti-inflammatories (NSAID); Z79.899 Other long term (current) drug therapy; W00.0XXA Fall on same level due to ice and snow, initial encounter
CPT/HCPCS: 73090; 73110; 72125; 70450; 99284; 96374; 96372; 29125; J1170

== ENCOUNTER → 2024-08-08 | Outpatient (CLI) | payer MEDICARE ==
--- NOTE | 2024-08-08 13:01 | XR ---
EXAMINATION TYPE: XR wrist complete RT DATE OF EXAM: 08/08/2024 CLINICAL INDICATION: Male, 73 years old with history of R52 pain R wrist, TECHNIQUE: 3Views of the wrist. 4 view scaphoid view is performed. COMPARISON: Prior right wrist x-rays May 25, 2023 FINDINGS: Osseous structures remain demineralized which is noted to lower radiographic sensitivity. I nterval healing of nondisplaced acute intra-articular fracture through the radial aspect of the dista l radius. No new fractures are seen. There is new widening of the scaphoid and lunate joint space. Th ere is more prominent radiocarpal joint space loss. 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 Advise orthopedic isabel rgical evaluation. [facility], , 08/08/2024 12:59 PM
== END | disposition home or self-care (01) ==
LOC: RADXRMAIN 12:33
PROVIDERS: ATTEND Family Medicine
DX: S52.501D Unspecified fracture of the lower end of right radius, subsequent encounter for closed fracture with routine healing (principal)